=== PATIENT | male | born 1990 | race Caucasian/White ===

== ENCOUNTER 2018-05-17 14:07 | Emergency (ER) | payer OTHER ==
[~2018-05-17] VITALS: Ht 190.5 cm; Wt 86.3 kg
[2018-05-17 14:15] VITALS: BP 125/63
[2018-05-17] MEDS ORDERED: PROPARACAINE OPHTH 0.5%, 15ML ONE (15:03)
[2018-05-17] MEDS ORDERED: ERYTHROMYCIN OPHTH 0.5%, 1GM RIGHTEYE ONE (16:00)
== END 2018-05-17 16:06 | disposition home or self-care (01) ==
LOC: ED 15:55
DX: T15.01XA Foreign body in cornea, right eye, initial encounter (principal); X58.XXXA Exposure to other specified factors, initial encounter; Y93.89 Activity, other specified; Y92.89 Other specified places as the place of occurrence of the external cause; Y99.8 Other external cause status
CPT/HCPCS: 65222; 99284